=== PATIENT | male | born 1975 | race Caucasian/White ===

== ENCOUNTER 2022-09-23 22:17 | Emergency (ER) | payer BC ==
[~2022-09-23] VITALS: Ht 172.7 cm; Wt 115.0 kg
[2022-09-23 22:21] VITALS: BP 122/68
[2022-09-24] MEDS ORDERED: IBUPROFEN 600MG TABLET PO ONE (08:00)
[2022-09-24] MEDS ORDERED: IBUP-2029 MT (09:29)
== END 2022-09-24 09:39 | disposition home or self-care (01) ==
LOC: ER 22:17
DX: S40.012A Contusion of left shoulder, initial encounter (principal); W18.39XA Other fall on same level, initial encounter; Y93.89 Activity, other specified; Y92.89 Other specified places as the place of occurrence of the external cause; Y99.8 Other external cause status; R42 Dizziness and giddiness; E11.9 Type 2 diabetes mellitus without complications; I10 Essential (primary) hypertension
CPT/HCPCS: 73030; 99283; Z7610